=== PATIENT | male | born 2000 | race Hispanic/Latino ===

== ENCOUNTER 2024-03-31 15:13 | Emergency (ER) | payer BC, MEDICAID ==
[~2024-03-31] VITALS: Ht 175.3 cm; Wt 89.8 kg
[2024-03-31 15:19] VITALS: BP 156/81; PULSE 98; RESP 16
[2024-03-31] MEDS ORDERED: CLIN-141 PO (15:30)
[2024-03-31] MEDS ORDERED: IBUP-2077 PO (15:30)
[2024-03-31] MEDS: KETOROLAC 60 MG VIAL (30MG/ML) IM ONE (15:40)
[2024-03-31] MEDS: CLINDAMYCIN 150 MG CAP PO ONE (15:40)
== END 2024-03-31 15:56 | disposition home or self-care (01) ==
LOC: EDH 15:13
DX: K02.9 Dental caries, unspecified (principal)
CPT/HCPCS: 99284; 96372; J1885